=== PATIENT | female | born 2000 | race Caucasian/White ===

== ENCOUNTER 2024-04-29 19:38 | Emergency (ER) | payer BC, SELFPAY ==
--- NOTE | ~2024-04-29 | XR_ITS ---
EXAMINATION: XR CHEST CLINICAL INFORMATION: Cough and shortness of breath. COMPARISON: None available. TECHNIQUE: 2 views of the chest were obtained. FINDINGS: The heart is normal in size. Both lungs are clear. No pleural effusion. No pneumothorax. No acute osseous abnormality. XR/XR chest 2V IMPRESSION: No acute cardiopulmonary disease. Electronically signed by: Nathaniel Bryan DO 04/29/2024 08:56 PM EDT RP
[2024-04-29 19:43] VITALS: BP 121/60; PULSE 60; RESP 14; TEMP 36.2; O2SAT 98; BMI 25.9
--- NOTE | 2024-04-29 19:43 | ED.GENADULT ---
HPI - General Adult General Chief complaint: Upper Respiratory Symptoms Stated complaint: sob, sharp pain throat Time Seen by Provider: 04/29/24 20:07 Source: patient Mode of arrival: ambulatory Limitations: no limitations History of Present Illness ED Provider: Dr. Kianna Mayer HPI narrative: patient comes to the emergency room complaining of mild shortness of breath, sore throat that started yesterday night. Patient believed initially that it was related to anxiety but her symptoms continued. Patient denies nausea vomiting or diarrhea, no chest pain, no fever or chills. Related Data Allergies Allergy/AdvReac Type Severity Reaction Status Date / Time No Known Allergies Allergy Verified 04/29/24 19:45 Review of Systems Review of Systems: Constitutional : No Weight loss, No Fever, No Chills, No Night Sweats, No Fatigue, No Malaise ENT/Mouth : No Hearing loss, No Ear Pain, No Nasal Congestion, No Sinus Pain, No Hoarseness, complaining of sore throat, No Rhinorrhea, No Swallowing Difficulty Eyes: No Eye Pain, No Swelling, No Redness, No Foreign Body, No Discharge, No Vision Changes Cardiovascular : No Chest Pain, No SOB, No Dyspnea on Exertion, No Orthopnea, No Edema, No Palpitations Respiratory : No Cough, No Sputum, No Wheezing, No Smoke Exposure, Complaining of mild shortness of breath Gastrointestinal : No Nausea, No Vomiting, No Diarrhea, No Constipation, No abdominal Pain, No Hematochezia, No Melena Genitourinary : no irregular bleeding, No Dysuria, No Urinary Frequency, No Hematuria, No Urinary Incontinence, No Urgency, No Flank Pain, No Urinary Flow Changes, No Hesitancy Musculoskeletal : No joint pain, No Myalgias, No Joint Swelling Skin : No Skin Lesions, No rash Neuro : No Weakness, No Numbness, No Paresthesias, No Loss of Consciousness, No Dizziness, No Headache Psych : possible anxiety, No Depression, No SI/HI/AH/VH, No Social Issues, Heme/Lymph: No Bruising, No Bleeding,No Lymphadenopathy Endocrine : No Polyuria, No Polydipsia, No Temperature Intolerance PMF Social History Social History Smoked in Last 30 Days: No Use of substances other than those prescribed or required for medical reasons: No Advance Directives: No Advance Directives Information Provided: No Do you have a plan to hurt others: No Plan Patient : No Physical Exam ED Vital Signs: Vital Signs - 24 hr 04/29/24 19:43 04/29/24 20:00 Temperature 97.2 F 98.2 F Pulse Rate 60 62 Respiratory Rate 14 16 Blood Pressure 121/60 113/74 Pulse Oximetry 98 99 Oxygen Delivery Method Room Air Room Air BMI result Body Mass Index 25.9 Const Other: Appearance: Alert. Oriented X3. No acute distress. Eyes: Pupils equal, round and reactive to light. ENT: erythematous oropharynx, no exudates, no visible abscess Neck: Normal inspection. Neck supple. No lymph nodes noted. No crepitus CVS: Normal heart rate and rhythm. Pulses normal. Normal S1 and S2 Respiratory: No respiratory distress. Breath sounds normal. No Wheezing. No rales Abdomen: Soft and nontender. No rigidity. No distention. Skin: Skin warm and dry. Normal skin color. Normal skin turgor. Extremities: No lower extremity edema. No Lacerations. No Rash Neuro: Oriented X 3. No motor deficit. No sensory deficit. Moving all extremities. No slurred speech. CN 2 through 12 grossly intact Psych: calm, cooperative, normal affect Course Course Course Narrative: RME performed by Jania Blas PA-C. Patient is a 23 year old assigned female at presenting to the emergency department with a sore throat and feeling generally unwell. Detailed physical exam and review of systems are deferred to the district manager primary care sales. Imaging and swabs ordered. Patient placed back in the waiting room pending room availability and results. Medical Decision Making Medical Decision Making [facility] Narrative: my interpretation of labs: Negative for influenza RSV COVID and strep - my interpretation of x-ray, no obvious abnormality - patient was given p.o. dexamethasone and viscous lidocaine for symptomatic relief Differential Diagnosis Differential Diagnoses: The differential diagnosis associated with the presentation includes ( as above) Lab Data [facility] Lab Attestation statement: I reviewed the patient's lab results. Labs: Lab Results 04/29/24 Range/Units 19:53 Influenza Type A (PCR) NEGATIVE (Negative) Influenza Type B (PCR) NEGATIVE (Negative) RSV RNA Qual (PCR) NEGATIVE (Negative) SARS-CoV-2 RNA (RT-PCR) NEGATIVE (Negative) S. pyogenes GrpA ZULEYKA Negative (Negative) Independent Interpretation I performed an independent interpretation of an: Plain X-Ray Radiology Impression Discussion of test interpretation with radiology: I have reviewed the radiologist's reading. Radiologist Impression: he heart is normal in size. Both lungs are clear. No pleural effusion. No pneumothorax. No acute osseous abnormality. XR/XR chest 2V IMPRESSION: No acute cardiopulmonary disease. Discharge Plan Discharge Clinical Impression: Upper respiratory infection, Acute viral pharyngitis Patient Disposition: Home, Self-Care Instructions: Pharyngitis (ED), Upper Respiratory Infection (ED) Additional Instructions: Your chest x-ray was negative for pneumonia. Please follow-up with your primary care physician tomorrow. If you have any worsening or new symptoms, please return to the emergency room or call 911 Stand Alone Forms: Work/School Release Print Language: Albanian
[2024-04-29 20:00] VITALS: BP 113/74; PULSE 62; RESP 16; TEMP 36.8; O2SAT 99
[2024-04-29 20:13] LABS: IDNOW Serial# 6674DD1D; Strep A Nucleic Acid Negative (Negative)
--- OUTSIDE RECORDS SUMMARY | 2024-04-29 20:30 | XMS_ITS | Continuity of Care Document ---
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 Phone PCP, UNKNOWN Primary Care Physician Encounter [facility] Date(s): 09/21/23 - 09/21/[address] [place] [id number] Encounter Diagnosis Pelvic pain(Discharge Diagnosis) - 09/21/23 Discharge Disposition: Home/Self Care Attending Physician: PRAFUL WOODALL MD Admitting Physician: PRAFUL WOODALL MD Referring Physician: PRAFUL WOODALL MD Allergies, Adverse Reactions, Alerts No Known Allergies Medications doxycycline hyclate 100 mg oral tablet 100 mg = 1 tab, Oral, BID, # 14 tab, 0 Refill(s) Start Date: 09/21/23 Stop Date: 09/28/23 Status: Ordered ketorolac 10 mg oral tablet 10 mg = 1 tab, Oral, Q6hr, PRN PRN as needed for pain, # 20 tab, 0 Refill(s), Tab, Pelvic pain Start Date: 09/21/23 Status: Ordered Problem List Condition Confirmation Course Effective Dates Status Health St atus Informant IUD (intrauterine device) in place Confirmed Active patient Results Laboratory List Name Date Complete Blood Count With Auto Different ial (CBC w/auto Diff) 09/21/23 Comprehensive Metabolic Panel (CMP) 09/21 Lipase Level 09/21/23 Manual Diff 09/21/23 HCG Qual Urine 09/21/23 Urinalysis Microscopic Exam 09/21/23 Urinalysis with Microscopic Examination if Indicated 09/21/23 Most recent to oldest [Reference Range]: 1 eGFR CKD-EPI [>=90 mL/min/1.73m2] >90 mL /min/1.73m2 (09/21/23 11:30 AM) NRBC Auto Abs [0.00-0.05 16j8iifin/mcL] 0.00 37s3arqvc/mcL (09/21/23 11:30 AM) NRBC Auto Rel [0.0-0.5 %] 0.2 % (09/21/23 11:30 AM) RBC Morph Abnormal *ABN* (09/21/23 11:30 AM) UA Appear Clear (09/21/23 10:30 AM) UA Bacteria None Seen (09/21/23 10:30 AM) UA Bili Negative (09/21/23 10:30 AM) UA Blood Negative (09/21/23 10:30 AM) UA Color Yellow (09/21/23 10:30 AM) UA Glucose Negative (09/21/23 10:30 AM) UA Ketones Negative (09/21/23 10:30 AM) UA Leuk Est 1+ *ABN* (09/21/23 10:30 AM) UA Nitrite Negative (09/21/23 10:30 AM) Hypochromasia Occasional (09/21/23 11:30 AM) Poikilocytosis 1+ (09/21/23 11:30 AM) Polychromasia Occasional (09/21/23 11:30 AM) UA Protein 1+ *ABN* (09/21/23 10:30 AM) UA RBC Rare *ABN* (09/21/23 10:30 AM) UA Squam Epith Rare /hpf *ABN* (09/21/23 10:30 AM) UA Urobilinogen Normal mg/dL (09/21/23 10:30 AM) UA WBC None Seen (09/21/23 10:30 AM) Anisocytosis 1+ (09/21/23 11:30 AM) Microcytosis 1+ (09/21/23 11:30 AM) Platelet Morph Plt Aniso Pres *ABN* (09/21/23 11:30 AM) Ovalocytes Occasional (09/21/23 11:30 AM) Plt Estimate Appear Adequate (09/21/23 11:30 AM) HCG Qual U Negative (09/21/23 10:30 AM) AGAP [3-11 mmol/L] 8 mmol/L (09/21/23 11:30 AM) Macrocytosis Occasional (09/21/23 11:30 AM) Schistocytes Occasional (09/21/23 11:30 AM) Spherocytes Occasional (09/21/23 11:30 AM) Tear Drop Cells 1+ (09/21/23 11:30 AM) Other Cell 0 *NA* (09/21/23 11:30 AM) Cells Counted 100 *Unknown* (09/21/23 11:30 AM) Promyelo Man [0-0 %] 0 % (09/21/23 11:30 AM) Segs Man [50-75 %] 38 % *LOW* (09/21/23 11:30 AM) Sodium Lvl [136-144 mmol/L] 139 mmol/L (09/21/23 11:30 AM) Total Protein [6.5-9.1 g/dL] 7.0 g/dL (09/21/23 11:30 AM) UA pH [6.0-7.5 pH_unit] 6.5 pH_unit (09/21/23 10:30 AM) Albumin Lvl [3.5-5.0 g/dL] 4.4 g/dL (09/21/23 11:30 AM) Alk Phos [35.0-117.0 units/L] 80.0 units /L (09/21/23 11:30 AM) ALT [7-52 units/L] 18 units/L (09/21/23 11:30 AM) AST [13-39 units/L] 30 units/L (09/21/23 11:30 AM) Band Man [0-6 %] 0 % (09/21/23 11:30 AM) Basophil Man [0-2 %] 0 % (09/21/23 11:30 AM) Bili Total [0.3-1.2 mg/dL] 0.4 mg/dL (09/21/23 11:30 AM) CO2 [22.0-32.0 mmol/L] 25.6 mmol/L (09/21/23 11:30 AM) Eos Man [0-5 %] 5 % (09/21/23 11:30 AM) Glucose Level [74-118 mg/dL] 85 mg/dL (09/21/23 11:30 AM) Lipase Lvl [11-82 units/L] 18 units/L (09/21/23 11:30 AM) Lymphocyte Man [20-45 %] 38 % (09/21/23 11:30 AM) Metamyelo Man [0-0 %] 0 % (09/21/23 11:30 AM) Monocyte Man [4-13 %] 19 % *HI* (09/21/23 11:30 AM) Myelocyte Man [0-0 %] 0 % (09/21/23 11:30 AM) NRBC Man [0-1 %] 0 % (09/21/23 11:30 AM) Potassium Lvl [3.60-5.10 mmol/L] 4.60 mm ol/L (09/21/23 11:30 AM) UA Spec Grav [1.005-1.030] 1.020 (09/21/23 10:30 AM) BUN [7.0-25.0 mg/dL] 12.0 mg/dL (09/21/23 11:30 AM) Calcium Lvl [8.9-10.3 mg/dL] 8.9 mg/dL (09/21/23 11:30 AM) Atyp Lymph Man 0 % *NA* (09/21/23 11:30 AM) Creatinine Lvl [0.44-1.24 mg/dL] 0.84 mg /dL (09/21/23 11:30 AM) Chloride Lvl [98.0-107.0 mmol/L] 105.4 m mol/L (09/21/23 11:30 AM) NRBC Not Present (09/21/23 11:30 AM) WBC [4.8-10.8 55u8pqilj/mcL] 2.6 89f1kyw ls/mcL *LOW* (09/21/23 11:30 AM) RBC [4.20-5.40 10e6 cells/mcL] 4.38 10e6 cells/mcL (09/21/23 11:30 AM) Hgb [12.0-16.0 g/dL] 13.0 g/dL (09/21/23 11:30 AM) Hct [35.0-49.0 %] 38.4 % (09/21/23 11:30 AM) MCV [81-99 fL] 88 fL (09/21/23 11:30 AM) MPV [7.9-10.8 fL] 8.3 fL (09/21/23 11:30 AM) MCH [27.0-34.0 pg] 29.7 pg (09/21/23 11:30 AM) MCHC [32.0-36.0 g/dL] 33.9 g/dL (09/21/23 11:30 AM) RDW [11.5-14.5 %] 13.0 % (09/21/23 11:30 AM) Platelet Count [130-400 54e9bswrl/mcL] 2 82 07j4ijaia/mcL (09/21/23 11:30 AM) Neutrophil Rel [50.0-75.0 %] 39.0 % *LOW* (09/21/23 11:30 AM) Lymphocyte Rel [20.0-45.0 %] 37.6 % (09/21/23 11:30 AM) Lymphocyte Abs [1.0-4.9 18f1ajbkn/mcL] 1 .0 08g1fjrqg/mcL (09/21/23 11:30 AM) Neutrophil Abs [2.4-8.1 80c7yunmg/mcL] 1 .0 45r3dpbvb/mcL *LOW* (09/21/23 11:30 AM) Monocyte Rel [4.0-13.0 %] 19.8 % *HI* (09/21/23 11:30 AM) Monocyte Abs [0.19-1.40 91q1bqkbc/mcL] 0 .50 46d2yfosx/mcL (09/21/23 11:30 AM) Eosinophil Rel [0.0-5.0 %] 2.9 % (09/21/23 11:30 AM) Eosinophil Abs [0.0-0.5 75q9kntdq/mcL] 0 .1 61t7tcxfe/mcL (09/21/23 11:30 AM) Basophil Rel [0.0-2.0 %] 0.7 % (09/21/23 11:30 AM) Basophil Abs [0.0-0.2 08v0ldyyq/mcL] 0.0 48r1vfjud/mcL (09/21/23 11:30 AM) Radiology Reports * Exam Date Time Procedure Performing Provider Status 09/21/23 1:52 PM US Pelvis Non Ob Complete [facility]-RT /TR, NOVEMBER; Auth (Verified) Notes: (US Pelvis Non Ob Complete) Reason For Exam: Pain REPORT PELVIC ULTRASOUND HISTORY: Pain. IUD in place. COMPARISON: None. TECHNIQUE: Grayscale images were obtained of the pelvis through a transabdominal and transvaginal approaches. Transvaginal images were obtained for better depiction of pelvic anatomy. FINDINGS: UTERUS: Size: 7.7 x 2.5 x 4.2 cm. There are no uterine fibroids. Endometrial thickness: 2.2 mm. No focal abnormality of the endometrium is demonstrated. IUD in place in an appropriate position. RIGHT ADNEXA: Right ovarian size: 3.2 x 2.7 x 3.6 cm. There is no ovarian or adnexal mass. Small follicles. There is normal color flow in the ovary. LEFT ADNEXA: Left ovarian size: 3.5 x 2.0 x 2.4 cm. There is no ovarian or adnexal mass. Small follicles. There is normal color flow in the ovary. Trace free fluid in the pelvis. The bladder is incompletely distended but otherwise grossly unremarkable. IMPRESSION: 1.IUD in place in an appropriate position. 2.Small follicles in either ovary. Final Report Electronic Signature: 09/21/2023 2:03 pm Signed By: Contributor_system, [email or web address] Transcribed: 09/21/2023 2:06 pm Vital Signs Most recent to oldest [Reference Range]: 1 2 Blood Pressure [90-140/60-90 mmHg] 103/6 9mmHg (09/21/23 10:14 AM) Dosing BMI 23 (09/21/23 2:38 PM) 23 (09/21/23 10:14 AM) Dosing BSA-Mosteller 1.62 m2 (09/21/23 2:38 PM) 1.62 m2 (09/21/23 10:14 AM) Dosing Weight 58.97 kg (09/21/23 2:38 PM) 58.97 kg (09/21/23 10:14 AM) Heart Rate [60-100 bpm] 64 bpm (09/21/23 10:14 AM) Height 160 cm (09/21/23 2:38 PM) 160 cm (09/21/23 10:14 AM) MAP 80 mmHg (09/21/23 10:14 AM) Method for Height Stated (09/21/23 10:14 AM) Respiratory Rate [14-20 breaths/min] 20 breaths/min (09/21/23 10:14 AM) SpO2/Pulse Oximetry [85-100 %] 99 % (09/21/23 10:14 AM) Temperature Oral [35.8-38 degC] 36.9 deg C (09/21/23 10:14 AM) Social History Social History Type Response Smoking Status Former smoker; Type: Cigarettes entered on: 09/21/23 Sex Hospital Discharge Instructions Follow Up Care 09/21/2023 10:03:11 With:Follow up with primary care provider Address: When:3-5 days Comments:Ketorolac (Toradol) is an anti-inflammatory in the same medicine family as ibuprofen. You should not take both, just one or the other. Patient Care team information Care Team Personnel Name: PCP, UNKNOWN Position: RO No Access Member Role: Primary Care Physician Address: Address: [address] [place] [address]-
--- OUTSIDE RECORDS SUMMARY | 2024-04-29 20:30 | XMS_ITS | Referral Summary ---
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 Phone PCP, NONE Primary Care Physician Unavailab le Encounter 06/14/22 - 06/14/[address] [phone] [place] Encounter Diagnosis Abnormal uterine bleeding(Discharge Diagnosis) - 06/14/22 Pelvic pain(Discharge Diagnosis) - 06/14/22 Ovarian cyst(Discharge Diagnosis) - 06/14/22 Discharge Disposition: H Outpt-Sent Home Attending Physician: RADHA KNAPP Admitting Physician: RADHA KNAPP Referring Physician: RADHA KNAPP Vital Signs Most recent to oldest [Reference Range]: 1 2 Temperature Oral [35.8-37.3 degC] 36.8 d egC (06/14/22 12:28 PM) 36.8 degC (06/14/22 9:36 AM) Heart Rate Monitored [60-100 bpm] 58 bpm *LOW* (06/14/22 12:28 PM) 65 bpm (06/14/22 11:30 AM) Respiratory Rate [12-20 br/min] 16 br/mi n (06/14/22 12:28 PM) 16 br/min (06/14/22 11:30 AM) Blood Pressure [90-140/60-90 mmHg] 118/7 6mmHg (06/14/22 12:28 PM) 120/75mmHg (06/14/22 11:30 AM) Problem List No Known Problems Allergies, Adverse Reactions, Alerts No Known Medication Allergies Medications Anaprox-DS 550 mg oral tablet 550 mg = 1 tabs, Oral, BID, PRN, X 5 days, # 10 tabs, 0 Refill(s), 06/19/22 11:53:00 EDT, moderate pain (4-7) Start Date: 06/14/22 Stop Date: 06/19/22 Status: Ordered oxyCODONE 5 mg oral tablet 5 mg = 1 tabs, Oral, q6hr, PRN, # 10 tabs, 0 Refill(s), 12/23/21 13:08:00 EDT, severe pain (8-10) Start Date: 12/18/21 Stop Date: 12/23/21 Status: Completed Zofran ODT 4 mg oral tablet, disintegrating 4 mg = 1 tabs, Oral, q12hr, PRN, # 10 tabs, 0 Refill(s), 12/23/21 13:08:00 EDT, nausea Start Date: 12/18/21 Stop Date: 12/23/21 Status: Completed Results WBC Most recent to oldest [Reference Range]: 1 WBC [3.8-10.6 x10e3/mcL] 4.8 x10e3/mcL (06/14/22 9:54 AM) Hgb Most recent to oldest [Reference Range]: 1 Hgb [11.5-15.7 g/dL] 12.5 g/dL (06/14/22 9:54 AM) Hct Most recent to oldest [Reference Range]: 1 HCT [34.0-47.0 %] 38.2 % (06/14/22 9:54 AM) Platelet Count Most recent to oldest [Reference Range]: 1 Platelet [140-440 x10e3/mcL] 301 x10e3/m cL (06/14/22 9:54 AM) Sodium Lvl Most recent to oldest [Reference Range]: 1 Sodium Lvl [135-145 mmol/L] 140 mmol/L (06/14/22 9:54 AM) Potassium Lvl Most recent to oldest [Reference Range]: 1 Potassium Lvl [3.5-5.3 mmol/L] 4.4 mmol/ L (06/14/22 9:54 AM) CO2 Most recent to oldest [Reference Range]: 1 CO2 [22-29 mmol/L] 24 mmol/L (06/14/22 9:54 AM) Chloride Most recent to oldest [Reference Range]: 1 Chloride [98-107 mmol/L] 106 mmol/L (06/14/22 9:54 AM) Anion Gap Most recent to oldest [Reference Range]: 1 AGAP [2-17 mmol/L] 10 mmol/L (06/14/22 9:54 AM) BUN Most recent to oldest [Reference Range]: 1 BUN [6-20 mg/dL] 8 mg/dL (06/14/22 9:54 AM) CREATININE Most recent to oldest [Reference Range]: 1 Creatinine Lvl [0.5-1.0 mg/dL] 0.6 mg/dL (06/14/22 9:54 AM) Calcium Lvl Most recent to oldest [Reference Range]: 1 Calcium Lvl [8.6-10.0 mg/dL] 9.5 mg/dL (06/14/22 9:54 AM) Procedures Procedure Date Related Diagnosis Body Site Status Foot Completed Functional Status FUNCTIONAL 06/14/22 Recent Travel History ID No recent trave l Close Contact with COVID-19 ID No TB Symptom Screen ID No symptoms C. diff Symptom/History ID Neither of th e above Last 14 days COVID-19 ID No Last 90 days COVID-19 ID No COGNITIVE 06/14/22 Orientation Assessment Oriented x 4 Hospital Discharge Instructions Patient Education 06/14/2022 09:29:28 Abnormal Uterine Bleeding, Pjdu-gw-Dncv Abnormal Uterine Bleeding Abnormal uterine bleeding means bleeding more than usual from your womb (uterus). It can include: ??? Bleeding between menstrual periods. ??? Bleeding after sex. ??? Bleeding that is heavier than normal. ??? Menstrual periods that last longer than usual. ??? Bleeding after you have stopped having your menstrual period (menopause). There are many problems that may cause this. You should see a doctor for any kind of bleeding that is not normal. Treatment depends on the cause of the bleeding. Follow these instructions at home: Medicines ??? Take fkmo-hag-idnrtza and prescription medicines only as told by your doctor. ??? Tell your doctor about other medicines that you take. ? If told by your doctor, stop taking aspirin or medicines that have aspirin in them. These medicines can make you bleed more. ??? You may be given iron pills to replace iron that your body loses because of this condition. Take them as told by your doctor. Managing constipation If you are taking iron pills, you may have trouble pooping (constipation). To prevent or treat trouble pooping, you may need to: ??? Drink enough fluid to keep your pee (urine) pale yellow. ??? Take qsev-dfx-npivyjp or prescription medicines. ??? Eat foods that are high in fiber. These include beans, whole grains, and fresh fruits and vegetables. ??? Limit foods that are high in fat and sugar. These include fried or sweet foods. General instructions ??? Watch your condition for any changes. ??? Do not use tampons, douche, or have sex, if your doctor tells you not to. ??? Change your pads often. ??? Get regular exams. This includes pelvic exams and cervical cancer screenings. ? It is up to you to get the results of any tests that are done. Ask your doctor, or the departmentthat is doing the tests, when your results will be ready. ??? Keep all follow-up visits as told by your doctor. This is important. Contact a doctor if: ??? The bleeding lasts more than 1 week. ??? You feel dizzy at times. ??? You feel like you may vomit (nausea). ??? You vomit. ??? You feel light-headed or weak. ??? Your symptoms get worse. Get help right away if: ??? You pass out. ??? You have to change pads every hour. ??? You have pain in your belly. ??? You have a fever or chills. ??? You get sweaty. ??? You get weak. ??? You pass large blood clots from your vagina. Summary ??? Abnormal uterine bleeding means bleeding more than usual from your womb (uterus). ??? Any kind of bleeding that is not normal should be checked by a doctor. ??? Treatment depends on the cause of the bleeding. ??? Get help right away if you pass out, you have to change pads every hour, or you pass large blood clots from your vagina. This information is not intended to replace advice given to you by your health care provider. Make sure you discuss any questions you have with your health care provider. Document Revised: 06/10/2020 Document Reviewed: 06/10/2020 Else[employer] Patient Education ?? 2020 [employer] Ovarian Cyst, Bjfz-sz-Ipyv Ovarian Cyst An ovarian cyst is a fluid-filled sac on an ovary. Most of these cysts go away on their own and arenot cancer. Some cysts need treatment. What are the causes? Ovarian hyperstimulation syndrome. Some medicines may lead to this problem. ??? Polycystic ovarian syndrome (PCOS). Problems with body chemicals (hormones) can lead to this condition. ??? The normal menstrual cycle. What increases the risk? Being overweight or very overweight. ??? Taking medicines to increase your chance of getting . ??? Using some types of control. ??? Smoking. What are the signs or symptoms? Many ovarian cysts do not cause symptoms. If you get symptoms, you may have: ??? Pain or pressure in the area between the hip bones. ??? Pain in the lower belly. ??? Pain during sex. ??? Swelling in the lower belly. ??? Periods that are not regular. ??? Pain with periods. How is this treated? Many ovarian cysts go away on their own without treatment. If you need treatment, it may include: ??? Medicines for pain. ??? Fluid taken out of the cyst. ??? The cyst being taken out. ??? control pills or other medicines. ??? Surgery to remove the ovary. Follow these instructions at home: ??? Take kgsk-ufs-eeayxqv and prescription medicines only as told by your doctor. ??? Ask your doctor if you should avoid driving or using machines while you are taking your medicine. ??? Get exams and Pap tests as told by your doctor. ??? Return to your normal activities when your doctor says that it is safe. ??? Do not smoke or use any products that contain nicotine or tobacco. If you need help quitting, ask your doctor. ??? Keep all follow-up visits. Contact a doctor if: ??? Your periods: ? Are late. ? Are not regular. ? Stop. ? Are painful. ??? You have pain in the area between your hip bones, and the pain does not go away. ??? You feel pressure on your bladder. ??? You have trouble peeing. ??? You feel full, or your belly hurts, swells, or bloats. ??? You gain or lose weight without trying, or you are less hungry than normal. ??? You feel pain and pressure in your back. ??? You feel pain and pressure in the area between your hip bones. ??? You think you may be . Get help right away if: ??? You have pain in your belly that is very bad or gets worse. ??? You have pain in the area between your hip bones, and the pain is very bad or gets worse. ??? You cannot eat or drink without vomiting. ??? You get a fever or chills all of a sudden. ??? Your period is a lot heavier than usual. Summary ??? An ovarian cyst is a fluid-filled sac on an ovary. ??? Some cysts may cause problems and need treatment. ??? Most of these cysts go away on their own. This information is not intended to replace advice given to you by your health care provider. Make sure you discuss any questions you have with your health care provider. Document Revised: 01/15/2021 Document Reviewed: 01/15/2021 [employer] Patient Education ?? 2020 [employer] Pelvic Pain, Female, Nops-vd-Pxxm Pelvic Pain, Female Pelvic pain is pain in your lower belly (abdomen), below your belly button and between your hips. The pain may start suddenly (be acute), keep coming back (be recurring), or last a long time (become chronic). Pelvic pain that lasts longer than 6 months is called chronic pelvic pain. There are many causes of pelvic pain. Sometimes the cause of pelvic pain is not known. Follow these instructions at home: ??? Take pokj-pia-pemreae and prescription medicines only as told by your doctor. ??? Rest as told by your doctor. ??? Do not have sex if it hurts. ??? Keep a journal of your pelvic pain. Write down: ? When the pain started. ? Where the pain is located. ? What seems to make the pain better or worse, such as food or your period (menstrual cycle). ? Any symptoms you have along with the pain. ??? Keep all follow-up visits as told by your doctor. This is important. Contact a doctor if: ??? Medicine does not help your pain. ??? Your pain comes back. ??? You have new symptoms. ??? You have unusual discharge or bleeding from your vagina. ??? You have a fever or chills. ??? You are having trouble pooping (constipation). ??? You have blood in your pee (urine) or poop (stool). ??? Your pee smells bad. ??? You feel weak or light-headed. Get help right away if: ??? You have sudden pain that is very bad. ??? Your pain keeps getting worse. ??? You have very bad pain and also have any of these symptoms: ? A fever. ? Feeling sick to your stomach (nausea). ? Throwing up (vomiting). ? Being very sweaty. ??? You pass out (lose consciousness). Summary ??? Pelvic pain is pain in your lower belly (abdomen), below your belly button and between your hips. ??? There are many possible causes of pelvic pain. ??? Keep a journal of your pelvic pain. This information is not intended to replace advice given to you by your health care provider. Make sure you discuss any questions you have with your health care provider. Document Revised: 01/24/2019 Document Reviewed: 01/24/2019 [employer] Patient Education ?? 2020 [employer] Follow Up Care 06/14/2022 09:29:28 With:CELIO ARANDA Address: [facility] [place] [id number] Business (1) When:3 to 5 days
--- OUTSIDE RECORDS SUMMARY | 2024-04-29 20:30 | XMS_ITS | Referral Summary ---
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 Phone PCP, NONE Primary Care Physician Unavailab le Encounter 12/18/21 - 12/18/[address] [phone] [place] Encounter Diagnosis Ruptured ovarian cyst(Discharge Diagnosis) - 12/18/21 Discharge Disposition: H Outpt-Sent Home Attending Physician: WAYLON LEMUS Admitting Physician: WAYLON LEMUS Referring Physician: WAYLON LEMUS Vital Signs Most recent to oldest [Reference Range]: 1 2 Temperature Oral [35.8-37.3 degC] 36.7 d egC (12/18/21 9:41 AM) Peripheral Pulse Rate [60-100 bpm] 65 bp m (12/18/21 1:13 PM) 68 bpm (12/18/21 10:03 AM) Heart Rate Monitored [60-100 bpm] 66 bpm (12/18/21 1:13 PM) 68 bpm (12/18/21 10:03 AM) Respiratory Rate [12-20 br/min] 15 br/mi n (12/18/21 1:13 PM) 15 br/min (12/18/21 10:03 AM) Blood Pressure [90-140/60-90 mmHg] 108/7 2mmHg (12/18/21 1:13 PM) 107/77mmHg (12/18/21 10:03 AM) Problem List No Known Problems Allergies, Adverse Reactions, Alerts No Known Medication Allergies Medications oxyCODONE 5 mg oral tablet 5 mg = 1 tabs, Oral, q6hr, PRN, # 10 tabs, 0 Refill(s), 12/23/21 13:08:00 EDT, severe pain (8-10) Start Date: 12/18/21 Stop Date: 12/23/21 Status: Ordered Zofran ODT 4 mg oral tablet, disintegrating 4 mg = 1 tabs, Oral, q12hr, PRN, # 10 tabs, 0 Refill(s), 12/23/21 13:08:00 EDT, nausea Start Date: 12/18/21 Stop Date: 12/23/21 Status: Ordered Results WBC Most recent to oldest [Reference Range]: 1 2 WBC [3.8-10.6 x10e3/mcL] 10.3 x10e3/mcL (12/18/21 12:17 PM) 9.3 x10e3/mcL (12/18/21 10:15 AM) Hgb Most recent to oldest [Reference Range]: 1 2 Hgb [11.5-15.7 g/dL] 11.5 g/dL (12/18/21 12:17 PM) 11.7 g/dL (12/18/21 10:15 AM) Hct Most recent to oldest [Reference Range]: 1 2 HCT [34.0-47.0 %] 35.3 % (12/18/21 12:17 PM) 36.0 % (12/18/21 10:15 AM) Platelet Count Most recent to oldest [Reference Range]: 1 2 Platelet [140-440 x10e3/mcL] 268 x10e3/m cL (12/18/21 12:17 PM) 244 x10e3/mcL (12/18/21 10:15 AM) UA Macroscopic Most recent to oldest [Reference Range]: 1 2 UA Color Yellow (12/18/21 10:15 AM) UA Appear Clear (12/18/21 10:15 AM) UA Glucose [Negative] Negative (12/18/21 10:15 AM) UA Bili [Negative] Negative (12/18/21 10:15 AM) UA Ketones [Negative] Negative (12/18/21 10:15 AM) UA Spec Grav [1.003 - 1.035] >=1.030 *ABN* (12/18/21 10:15 AM) UA Blood [Negative] Negative (12/18/21 10:15 AM) UA pH [4.5 - 8.0] 6.0 (12/18/21 10:15 AM) Protein U [Negative] Negative (12/18/21 10:15 AM) UA Urobilinogen [1.0 EU/dL] 0.2 EU/dL (12/18/21 10:15 AM) UA Nitrite [Negative] Negative (12/18/21 10:15 AM) UA Leuk Est [Negative] Negative (12/18/21 10:15 AM) Procedures Procedure Date Related Diagnosis Body Site Status Foot Completed Functional Status FUNCTIONAL 12/18/21 Recent Travel History ID No recent trave l Close Contact with COVID-19 ID No TB Symptom Screen ID No symptoms C. diff Symptom/History ID Neither of th e above Last 14 days COVID-19 ID No Last 90 days COVID-19 ID No COGNITIVE 12/18/21 Orientation Assessment Oriented x 4 Hospital Discharge Instructions Patient Education 12/18/2021 09:34:07 Ovarian Cyst Ovarian Cyst An ovarian cyst is a fluid-filled sac that forms on an ovary. The ovaries are small organs that produce eggs in women. Various types of cysts can form on the ovaries. Some may cause symptoms and require treatment. Most ovarian cysts go away on their own, are not cancerous (are benign), and do not cause problems. What are the causes? Ovarian cysts may be caused by: ??? Ovarian hyperstimulation syndrome. This is a condition that can develop from taking fertility medicines. It causes multiple large ovarian cysts to form. ??? Polycystic ovarian syndrome (PCOS). This is a common hormonal disorder that can cause ovarian cysts to form, and can cause problems with your period or fertility. ??? The normal menstrual cycle. What increases the risk? The following factors may make you more likely to develop this condition: ??? Being overweight or obese. ??? Taking fertility medicines. ??? Taking certain forms of hormonal control. ??? Smoking. What are the signs or symptoms? Many ovarian cysts do not cause symptoms. If symptoms are present, they may include: ??? Pelvic pain or pressure. ??? Pain in the lower abdomen. ??? Pain during sex. ??? Abdominal swelling. ??? Abnormal menstrual periods. ??? Increasing pain with menstrual periods. How is this diagnosed? These cysts are commonly found during a routine pelvic exam. You may have tests to find out more about the cyst, such as: ??? Ultrasound. ??? CT scan. ??? MRI. ??? Blood tests. How is this treated? Many ovarian cysts go away on their own without treatment. Your health care provider may want to check your cyst regularly for 2???3 months to see if it changes. If you are in menopause, it is especially important to have your cyst monitored closely because menopausal women have a higher rate of ovarian cancer. When treatment is needed, it may include: ??? Medicines to help relieve pain. ??? A procedure to drain the cyst (aspiration). ??? Surgery to remove the whole cyst (cystectomy). ??? Hormone treatment or control pills. These methods are sometimes used to help keep cysts from coming back. ??? Surgery to remove the ovary (oophorectomy). Follow these instructions at home: ??? Take conq-gpn-jjgodml and prescription medicines only as told by your health care provider. ??? Ask your health care provider if any medicine prescribed to you requires you to avoid driving or using machinery. ??? Get regular pelvic exams and Pap tests as often as told by your health care provider. ??? Return to your normal activities as told by your health care provider. Ask your health care provider what activities are safe for you. ??? Do not use any products that contain nicotine or tobacco, such as cigarettes, e-cigarettes, andchewing tobacco. If you need help quitting, ask your health care provider. ??? Keep all follow-up visits. This is important. Contact a health care provider if: ??? Your periods are late, irregular, painful, or they stop. ??? You have pelvic pain that does not go away. ??? You have pressure on your bladder or trouble emptying your bladder completely. ??? You have any of the following: ? A feeling of fullness. ? You are gaining weight or losing weight without changing your exercise and eating habits. ? Pain, swelling, or bloating in the abdomen. ? Loss of appetite. ? Pain and pressure in your back and pelvis. ??? You think you may be . Get help right away if: ??? You have abdominal or pelvic pain that is severe or gets worse. ??? You cannot eat or drink without vomiting. ??? You suddenly develop a fever or chills. ??? Your menstrual period is much heavier than usual. Summary ??? An ovarian cyst is a fluid-filled sac that forms on an ovary. ??? Some ovarian cysts may cause symptoms and require treatment. ??? These cysts are commonly found during a routine pelvic exam. ??? Many ovarian cysts go away on their own without treatment. This information is not intended to replace advice given to you by your health care provider. Make sure you discuss any questions you have with your health care provider. Document Revised: 01/15/2021 Document Reviewed: 01/15/2021 [employer] Patient Education ?? 2020 [employer]. Follow Up Care 12/18/2021 09:34:07 With:Your pediatric genetic counselor Address:Unknown When:3 to 5 days Comments:Return to ED if symptoms worsen
[2024-04-29 20:37] LABS: Influenza A PCR NEGATIVE (Negative); Influenza B PCR NEGATIVE (Negative); Resp Syncy Virus RNA Qual PCR NEGATIVE (Negative); SARS COV2 PCR INHOUSE NEGATIVE (Negative)
[2024-04-29] MEDS: Lidocaine HCl Viscous 2 % 15 ML SOLUTION MUCOUS MEM (21:28)
[2024-04-29] MEDS: dexAMETHasone sod phosphate 4 MG/ML VIAL 6 MG IVPUSH (21:28)
[2024-04-30 03:13] VITALS: BP 120/68; PULSE 68; RESP 18; TEMP 36.8; O2SAT 99
== END 2024-04-29 22:15 | disposition home or self-care (01) ==
PROVIDERS: Physician Assistant Medical; Emergency Provider Emergency Medicine
DX: J02.8 Acute pharyngitis due to other specified organisms (principal); J06.9 Acute upper respiratory infection, unspecified; R06.02 Shortness of breath; R07.0 Pain in throat; R05.9 Cough, unspecified; Z03.818 Encounter for observation for suspected exposure to other biological agents ruled out; Z79.899 Other long term (current) drug therapy
CPT/HCPCS: 0241U; 71046; 87651; 96374; 99284; J1100

== ENCOUNTER 2024-06-12 18:26 | Emergency (ER) | payer BC, SELFPAY ==
--- NOTE | ~2024-06-12 | XR_ITS ---
EXAMINATION: XR LUMBOSACRAL SPINE CLINICAL INFORMATION: Pain/trauma COMPARISON: None available. TECHNIQUE: Three views of the lumbosacral spine. FINDINGS: The vertebral bodies and posterior elements are normal. The disc spaces are preserved and the vertebral alignment is normal. The paraspinal soft tissues are normal. XR/XR lumbar spine 2-3V IMPRESSION: Unremarkable examination. Electronically signed by: Frankie Byrnes DO 06/12/2024 09:39 PM EDT
[2024-06-12 19:35] VITALS: BP 109/57; PULSE 92; RESP 18; TEMP 37.2; O2SAT 98; BMI 26.0
--- NOTE | 2024-06-12 19:41 | ED_ITS ---
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 noticed pain in the bilateral lateral aspect of lumber spine no midline tenderness slight shooting of the pain to the r leg no bladder or bowel involvement patient ambulatory in steady gait Related Data Previous Rx's ?Medication ?Instructions ?Recorded cyclobenzaprine 10 mg tablet 10 mg PO Q8H #20 tabs 06/12/24 ibuprofen 600 mg tablet 600 mg PO Q6H PRN fever or pain 06/12/24 #30 tabs Allergies Allergy/AdvReac Type Severity Reaction Status Date / Time No Known Allergies Allergy Verified 06/12/24 19:40 Review of Systems Review of Systems: Yes all other systems are reviewed and are negative [facility] Social History Social History Smoked in Last 30 Days: No Use of substances other than those prescribed or required for medical reasons: Yes Substance Use Type: Marijuana Substance Use Frequency: Socially Advance Directives: No Advance Directives Information Provided: Yes Do you have a plan to hurt others: No Plan Patient : No Physical Exam Vital Signs: Vital Signs: Last Vital Signs Temp 97.3 F 06/12/24 22:50 Pulse 64 06/12/24 22:50 Resp 16 06/12/24 22:50 BP 119/70 06/12/24 22:50 Pulse Ox 99 06/12/24 22:50 O2 Del Method Room Air 06/12/24 22:50 BMI result Body Mass Index 26.0 Appearance: Alert. Oriented X3. No acute distress. Eyes: No pallor or icterus ENT: Pharynx normal. Oral Mucosa moist Neck: Normal inspection. Neck supple. CVS: Normal heart rate and rhythm. Pulses normal. Respiratory: No respiratory distress. Equal air entry bilateral, no wheezing/rales/rhonchi Abdomen: Soft and nontender. Bowel sounds are present, no mass palpable, no CVA tenderness Skin: Skin warm and dry. Normal skin color. Normal skin turgor. back: Diffuse lumbar paraspinal tenderness no midline tenderness good range of movement SLR negative bilaterally Extremities: No lower extremity edema. No calf tenderness Neuro: Oriented X 3. No motor deficit. No sensory deficit.No cerebellar signs , cranial nerves II-XII intact Medications Administered Discontinued Medications Generic Name Dose Route Start Last Admin Trade Name Freq PRN Reason Stop Dose Admin Cyclobenzaprine HCl 10 mg 06/12/24 22:22 06/12/24 22:41 Cyclobenzaprine Hcl 10 Mg Tablet PO 06/12/24 22:23 10 mg ONCE ONE Administration Ibuprofen 600 mg 06/12/24 19:40 06/12/24 19:49 Ibuprofen 600 Mg Tablet PO 06/12/24 19:41 600 mg ONCE ONE Administration Medical Decision Making Lab Data Labs: Lab Results 06/12/24 Range/Units 19:52 Urine Test NEGATIVE (NEGATIVE) Independent Interpretation I performed an independent interpretation of an: Plain X-Ray Radiology Impression Discussion of test interpretation with radiology: I have reviewed the radiologist's reading. Radiologist Impression: Normal lumbar spine x-ray Discharge Plan Discharge Clinical Impression: Strain of lumbar region Patient Disposition: Home, Self-Care Instructions: Low Back Strain (ED) Additional Instructions: Take pain medication muscle relaxants as prescribed Follow up with PCP if not better Prescriptions: New cyclobenzaprine 10 mg tablet 10 mg PO Q8H Qty: 20 0RF ibuprofen 600 mg tablet 600 mg PO Q6H PRN (Reason: fever or pain) Qty: 30 0RF Stand Alone Forms: Work/School Release Interventions: ED Discharge Assessment Last Done: 06/12/24 22:50 Discharge Date/Time: 06/12/24 22:52 Print Language: Upper Sorbian
[2024-06-12] MEDS: Ibuprofen 600 MG TABLET PO (19:49)
[2024-06-12 20:03] LABS: UPreg QC Valid YES; Urine Pregnancy NEGATIVE (NEGATIVE)
[2024-06-12 22:12] VITALS: BP 119/70; PULSE 64; RESP 16; TEMP 36.3; O2SAT 99
[2024-06-12] MEDS: Cyclobenzaprine HCl 10 MG TABLET PO (22:41)
[2024-06-12 22:50] VITALS: BP 119/70; PULSE 64; RESP 16; TEMP 36.3; O2SAT 99
== END 2024-06-12 22:52 | disposition home or self-care (01) ==
PROVIDERS: Physician Assistant Medical; Emergency Provider Internal Medicine
DX: S39.012A Strain of muscle, fascia and tendon of lower back, initial encounter (principal); M79.604 Pain in right leg; X58.XXXA Exposure to other specified factors, initial encounter; Y93.89 Activity, other specified; Y92.89 Other specified places as the place of occurrence of the external cause; Y99.8 Other external cause status
CPT/HCPCS: 72100; 81025; 99283; 99284